=== PATIENT | female | born 1985 | race Caucasian/White ===

== ENCOUNTER 2020-08-08 09:34 | Emergency (ER) | payer SELFPAY ==
[2020-08-08 09:46] VITALS: PULSE 142; RESP 20; TEMP 36.8; O2SAT 91; BMI 46.7
--- NOTE | 2020-08-08 09:54 | XRR_ITS ---
PROCEDURE INFORMATION: Exam: XR Chest, 1 View Exam date and time: 08/08/2020 10:11 AM Age: 35 years old Clinical indication: Shortness of breath; Additional info: SOB TECHNIQUE: Imaging protocol: XR of the chest Views: 1 view. COMPARISON: CR Chest 1 [place] [id number] 08/08/2017 11:31 AM FINDINGS: Lungs: Low lung volumes. No consolidation. Pleural space: Unremarkable. No evidence of pleural effusion or pneumothorax. Heart/Mediastinum: Unremarkable. No cardiomegaly. Bones/joints: Unremarkable. XR/XR chest 1V portable [id number] IMPRESSION: No acute findings.
[2020-08-08 10:24] VITALS: RESP 20
[2020-08-08] MEDS: morphine 4 mg/mL SDV 1 mL IVP (10:24)
[2020-08-08] MEDS: ondansetron 2 mg/ML SDV 2 mL 4 MG IVP ×2 (10:25→13:19)
[2020-08-08 10:26] LABS: Basophils % 0.2 %; Hematocrit 43.4 % (37.0-47.0); Hemoglobin 14.4 g/dL (11.5-15.3); Lymphocytes # 1.3 10^3/uL (0.8-4.8); Lymphocytes % 7.7 %; Mean Corpuscular HGB Conc 33.2 g/dL (30.0-36.0); Mean Corpuscular Hemoglobin 29.2 pg (28.0-34.0); Monocytes % 6.1 %; Neutrophils # 13.79 10^3/uL (1.8-7.7); Neutrophils % 85.5 %; Nucleated Red Blood Cells % 0 %; Platelet Count 338 10^3/cmm (130-400); Red Blood Count 4.93 10^6/uL (4.1-5.3); Red Cell Distribution Width 12.5 % (12.1-15.1); White Blood Count 16.1 10^3/uL (4.0-10.0)
[2020-08-08 10:28] LABS: HCG, Serum Qual Negative (Negative)
[2020-08-08] MEDS: sodium chloride 0.9% 1,000 ML 999 ML IV ×2 (10:28→13:13)
[2020-08-08 10:32] LABS: Alanine Aminotransferase 23 U/L (0-33); Albumin Level 4.4 g/dL (3.5-5.2); Alkaline Phosphatase 115 IU/L (35-105); Carbon Dioxide 19 mmol/L (22-29); Chloride 100 mmol/L (98-107); Globulin 3.6 g/dL (1.3-4.6); Glomerular Filtration Rate 50.8 mL/min (90-130); Glucose 141 mg/dL (65-115); Sodium 134 mmol/L (136-145); Total Bilirubin 0.5 mg/dL (0.15-1.2)
[2020-08-08 10:35] LABS: D Dimer 4.88 ug/mIFEU (0-0.59)
--- NOTE | 2020-08-08 10:36 | CTR_ITS ---
PROCEDURE INFORMATION: Exam: CT Angiography Chest With Contrast Exam date and time: 08/08/2020 10:37 AM Age: 35 years old Clinical indication: Shortness of breath; Additional info: SOB elevated dimer TECHNIQUE: Imaging protocol: Computed tomographic angiography of the chest with intravenous contrast. 3D rendering (Not supervised by radiologist): MIP and/or 3D reconstructed images were created by the technologist. Radiation optimization: All CT scans at this facility use at least one of these dose optimization techniques: automated exposure control; mA and/or kV adjustment per patient size (includes targeted exams where dose is matched to clinical indication); or iterative reconstruction. Contrast material: OMNI 350; Contrast volume: 95 ml; Contrast route: INTRAVENOUS (IV); COMPARISON: CR (CHEST, ) 08/08/2020 9:59 AM RADIATION DOSE METRICS: Total DLP (mGy-cm): 497.76 FINDINGS: Pulmonary arteries: Normal. No pulmonary emboli. Aorta: Unremarkable. No aortic aneurysm. No aortic dissection. Lungs: Unremarkable. No consolidation. No masses. Pleural space: Unremarkable. No pneumothorax. No pleural effusion. Heart: Unremarkable. No cardiomegaly. No pericardial effusion. Lymph nodes: Unremarkable. No enlarged lymph nodes. Bones/joints: Unremarkable. No acute fracture. Soft tissues: Unremarkable. CT/CT angio chest PE protcl [id number] IMPRESSION: No acute findings. Radiation Dose CTDIVOL = (mGy): DLP = 497.76 (mGy-cm)
[2020-08-08 10:43] LABS: Anion Gap 18.3 (5-19); Blood Urea Nitrogen 8 mg/dL (6-20); Osmolality Calculated 279 mOsm/kg (285-295); Potassium 3.3 mmol/L (3.5-5.1)
[2020-08-08 10:44] LABS: Aspartate Amino Transferase 23 U/L (0-32); Calcium 9.9 mg/dL (8.5-10.5)
[2020-08-08] MEDS: iohexol 350 mg/mL 100 mL Btl IV (11:24)
[2020-08-08 11:32] VITALS: BP 125/91; PULSE 112; RESP 21; O2SAT 99
[2020-08-08 11:51] LABS: Add Urine Microscopic? YES; Bilirubin Urine 1+ (Negative); Blood Urine Neg (Negative); Glucose Urine UA Norm (Normal); Ketones Urine Negative (Negative); Leukocyte Esterase Urine Negative (Negative); Nitrate Urine Negative (Negative); Protein Urine Trace (Negative); Urine Appearance Hazy (CLEAR); Urine Color Yellow (Yellow); Urobilinogen Urine Norm (Negative); pH Urine 5 (5-7)
[2020-08-08 12:11] LABS: Add Urine Culture? Yes; Bacteria Urine 2+ /hpf; RBC Urine 0-4 /hpf (0-2); Squamous Epithelial Cell Urine 15-25 /hpf (0-5)
--- NOTE | 2020-08-08 12:56 | ED_ITS ---
HPI - Nausea/Vomiting/Diarrhea General: Chief complaint: Nausea/Vomiting/Diarrhea Stated complaint: FEVER/N/V Time Seen by Provider: 08/08/20 09:42 Source: patient Mode of arrival: ambulatory Limitations: no limitations History of Present Illness: HPI Narrative: 35-year-old female patient presents to the emergency department complaining of shortness of breath nausea vomiting. Patient denies any abdominal pain. Patient denies any urinary symptoms. Patient states she has been running a fever at home. Patient has had positive exposure to COVID. Patient denies any neck pain. Patient complains of generalized malaise patient states the symptoms started about 3 days ago. MD elicited complaint: nausea and vomiting Associated nausea: Yes Associated symtoms: Reports nausea; Denies anxiety, change in vision, chest pain, dizziness, dysuria, headache(s), palpitations or syncope Review of Systems General: Reports: 10 or more systems reviewed and unremarkable except in HPI and below Const: Reports: fever(s), chills and body aches Eyes: Denies: change in vision or blurry vision ENMT: Denies: throat pain, dental pain or ear or mastoid pain Card: Denies: chest pain, palpitations, irregular heart rhythm, edema, lightheadedness or syncope Resp: Reports: dyspnea and non-productive cough; Denies: wheezing, stridor or pain on inspiration GI: Reports: nausea and vomiting; Denies: abdominal pain : Denies: flank pain, difficulty voiding, dysuria or urinary frequency Musc: Denies: neck pain or back pain Skin/Breast: Denies: rash Neuro: Denies: headache(s), numbness in extremities, weakness in extremities, dizziness or vertigo Psych: Denies: anxiety, suicidal ideation or homicidal ideation [facility] ED PFSH: Social History Smoking and tobacco status: never smoked Physical Exam Const: COMMON NORMALS: no acute distress, average body habitus, patient oriented x3, no limitations, healthy appearing, alert and well nourished HENMT: COMMON NORMALS: normocephalic, atraumatic, hearing grossly normal bilaterally, external ears normal, EAC's normal, TM's normal bilaterally, Normal external nose present, Normal nasal mucous membranes and turbinates present, moist oral mucous membranes, oropharynx normal, dentition normal and gingiva normal HEAD & SCALP: normocephalic and atraumatic NOSE: Normal external nose present and Normal nasal mucous membranes and turbinates present EXTERNAL EAR: Yes external ears normal EXTERNAL AUDITORY CANAL: EAC's normal TYMPANIC MEMBRANE: TM's normal bilaterally Eye: COMMON NORMALS: Equal, round and reactive pupils present, EOMs intact bilaterally, conjunctivae normal, no scleral icterus, no papilledema, normal visual wilkerson by confrontation and fundi normal bilaterally CONJUNCTIVA: Yes conjunctivae normal PUPIL: Yes Equal, round and reactive pupils present DIRECT OPHTHALMOSCOPY: Yes no papilledema and Yes fundi normal bilaterally Neck/C-Spine: COMMON NORMALS: full ROM, no lymphadenopathy, supple, no meningeal signs, no JVD, Thyroid normal and No carotid bruits THYROID: Thyroid normal Chest: COMMONS NORMALS: normal inspection of the chest, normal palpation of entire chest wall, normal inspection of the breasts and normal palpation of the breasts Resp: COMMON NORMALS: normal respiratory effort, No retractions, No use of accessory muscles, clear to auscultation bilaterally and percussion normal AUSCULTATION: clear to auscultation bilaterally PERCUSSION: percussion normal Cardio: COMMON NORMALS: no JVD RATE: tachycardic GI: COMMON NORMALS: Normal to inspection, nondistended, normoactive bowel sounds present, Soft to palpation, non-tender, No hepatosplenomegaly present, no masses and no bruits PALPATION: Yes Soft to palpation and Yes No hepatosple nomegaly present Extremity: COMMON NORMALS: normal to inspection, full ROM, capillary refill normal, no joint enlargement, no clubbing, cyanosis or edema, no calf tenderness and no pedal edema Neuro: COMMON NORMALS: patient oriented x3 SENSORIUM/ORIENTATION: Yes alert MENINGEAL SIGNS: Yes no meningeal signs Psych: COMMON NORMALS: mental status grossly normal, Normal thought process present, cooperative, normal affect, speech normal, activity/motor behavior normal, denies hallucinations, denies homicidal ideation and denies suicidal ideation SPEECH: Yes normal speech THOUGHT PROCESS: Normal thought process present Skin: COMMON NORMALS: no rashes or lesions noted, no wounds, turgor normal, no jaundice, no petechiae and no mottling GENERAL SKIN EXAM: no rashes or lesion s noted and turgor normal Course Vital Signs: Vital signs: Vital Signs Temperature 98.2 F 08/08/20 09:46 Pulse Rate 112 H 08/08/20 11:32 Respiratory Rate 21 H 08/08/20 11:32 Blood Pressure 125/91 08/08/20 11:32 Pulse Oximetry 99 08/08/20 11:32 MDM - Nausea/Vomiting/Diarrhea MDM Narrative: Medical decision making narrative: Patient is well-appearing nontoxic and in no acute distress. However patient did come in tachycardic. I did order a CT PE of her chest to rule out for pulmonary emboli. Patient CT chest was negative for pulmonary emboli or any other acute findings. Patient has been given 2 L of fluid her heart rate has come down to about 105 110 patient's nausea has been treated with Zofran. Patient states she has had some clinical improvement with this. 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 Patient states she thinks Zofran and her antibiotics will make her feel better. I have advised patient she must return to the emergency department with any worsening of her symptoms patient is denied abdominal pain or pelvic pain. Patient denies any back pain or flank pain or CVA tenderness any sign suggestive of pyelonephritis. Patient's COVID test is pending I have advised patient she needs to self quarantine until she knows the results of these test. Return precautions have been advised home care instructions have been reviewed at this time a feel patient is appropriate for outpatient treatment with very close follow-up. Differential Diagnosis: N/V/D differential diagnosis: Likely traveler's diarrhea, gastroenteritis and dehydration Lab Data: Labs: Lab Results 08/08/20 08/08/20 08/08/20 Range/Units 10:02 10:02 10:02 WBC 16.1 H (4.0-10.0) 10^3/ uL RBC 4.93 (4.1-5.3) 10^6/u L Hgb 14.4 (11.5-15.3) g/dL Hct 43.4 (37.0-47.0) % MCV 88.0 (81-99) fL MCH 29.2 (28.0-34.0) pg MCHC 33.2 (30.0-36.0) g/dL RDW 12.5 (12.1-15.1) % Plt Count 338 (130-400) 10^3/c mm MPV 10.0 (7.4-10.4) fL Neut % (Auto) 85.5 % Lymph % (Auto) 7.7 % Stearns % (Auto) 6.1 % Eos % (Auto) 0.0 % Baso % (Auto) 0.2 % Neut # (Auto) 13.79 H (1.8-7.7) 10^3/u L Lymph # (Auto) 1.3 (0.8-4.8) 10^3/u L Stearns # (Auto) 1.0 H (0.2-0.9) 10^3/u L Eos # (Auto) 0.0 (0.0-0.8) 10^3/u L Baso # (Auto) 0.0 (0.0-0.1) 10^3/u L Nucleated RBC % (a uto) 0 % Nucleated RBCs # 0.0 /100WBC D-Dimer (0-0.59) ug/mIFE U Sodium 134 L (136-145) mmol/L Potassium 3.3 L (3.5-5.1) mmol/L Chloride 100 (98-107) mmol/L Carbon Dioxide 19 L (22-29) mmol/L Anion Gap 18.3 (5-19) BUN 8 (6-20) mg/dL Creatinine 1.2 H (0.5-0.9) mg/dL GFR Calculation 50.8 L (90-130) mL/min Glucose 141 H (65-115) mg/dL Calculated Osmolal ity 279 L (285-295) mOsm/k g Calcium 9.9 (8.5-10.5) mg/dL Total Bilirubin 0.5 (0.15-1.2) mg/dL AST 23 (0-32) U/L ALT 23 (0-33) U/L Alkaline Phosphata se 115 H (35-105) IU/L Total Protein 8.0 (6.6-8.7) g/dL Albumin 4.4 (3.5-5.2) g/dL Globulin 3.6 (1.3-4.6) g/dL HCG, Qual Negative (Negative) Urine Color (Yellow) Urine Appearance (CLEAR) Urine pH (5-7) Ur Specific Gravit y (1.005-1.030) Urine Protein (Negative) Urine Glucose (UA) (Normal) Urine Ketones (Negative) Urine Blood (Negative) Urine Nitrate (Negative) Urine Bilirubin (Negative) Urine Urobilinogen (Negative) mg/dL Ur Leukocyte Daily ase (Negative) Urine RBC (0-2) /hpf Urine WBC (0-5) /hpf Ur Squamous Epith Cells (0-5) /hpf Amorphous Sediment Urine Bacteria (NONE) /hpf SARS-CoV-2 Ag (Rap id) (Negative) 08/08/20 08/08/20 08/08/20 Range/Units 10:02 10:34 14:18 WBC (4.0-10.0) 10^3/ uL RBC (4.1-5.3) 10^6/u L Hgb (11.5-15.3) g/dL Hct (37.0-47.0) % MCV (81-99) fL MCH (28.0-34.0) pg MCHC (30.0-36.0) g/dL RDW (12.1-15.1) % Plt Count (130-400) 10^3/c mm MPV (7.4-10.4) fL Neut % (Auto) % Lymph % (Auto) % Stearns % (Auto) % Eos % (Auto) % Baso % (Auto) % Neut # (Auto) (1.8-7.7) 10^3/u L Lymph # (Auto) (0.8-4.8) 10^3/u L Stearns # (Auto) (0.2-0.9) 10^3/u L Eos # (Auto) (0.0-0.8) 10^3/u L Baso # (Auto) (0.0-0.1) 10^3/u L Nucleated RBC % (a uto) % Nucleated RBCs # /100WBC D-Dimer 4.88 H (0-0.59) ug/mIFE U Sodium (136-145) mmol/L Potassium (3.5-5.1) mmol/L Chloride (98-107) mmol/L Carbon Dioxide (22-29) mmol/L Anion Gap (5-19) BUN (6-20) mg/dL Creatinine (0.5-0.9) mg/dL GFR Calculation (90-130) mL/min Glucose (65-115) mg/dL Calculated Osmolal ity (285-295) mOsm/k g Calcium (8.5-10.5) mg/dL Total Bilirubin (0.15-1.2) mg/dL AST (0-32) U/L ALT (0-33) U/L Alkaline Phosphata se (35-105) IU/L Total Protein (6.6-8.7) g/dL Albumin (3.5-5.2) g/dL Globulin (1.3-4.6) g/dL HCG, Qual (Negative) Urine Color Yellow (Yellow) Urine Appearance Hazy A (CLEAR) Urine pH 5 (5-7) Ur Specific Gravit y 1.020 (1.005-1.030) Urine Protein Trace (Negative) Urine Glucose (UA) Norm (Normal) Urine Ketones Negative (Negative) Urine Blood Neg (Negative) Urine Nitrate Negative (Negative) Urine Bilirubin 1+ H (Negative) Urine Urobilinogen Norm (Negative) mg/dL Ur Leukocyte Daily ase Negative (Negative) Urine RBC 0-4 H (0-2) /hpf Urine WBC 10-15 H (0-5) /hpf Ur Squamous Epith Cells 15-25 H (0-5) /hpf Amorphous Sediment Not Reportable Urine Bacteria 2+ H (NONE) /hpf SARS-CoV-2 Ag (Rap id) Negative (Negative) Discharge Plan Discharge Patient Disposition: Home Clinical Impression: Gastroenteritis UTI (urinary tract infection) Qualifiers: Urinary tract infection type: acute cystitis Hematuria presence: without hematuria Qualified Code(s): N30.00 - Acute cystitis without hematuria Condition: Stable Prescriptions: New dicyclomine 20 mg tablet 20 mg PO BID Qty: 10 RF: 0 Cipro 250 mg tablet 250 mg PO BID 3 Days Qty: 6 RF: 0 Zofran 4 mg tablet 4 mg PO Q8H PRN (Reason: nausea and vomiting) 4 Days Qty: 15 RF: 0 No Action ibuprofen 800 mg tablet 800 mg PO Q8H PRN (Reason: FEVER/PAIN) RF: 0 levothyroxine 200 mcg tablet 400 mcg PO QDAY RF: 0 Tylenol 325 mg Tablet 325 mg PO QID PRN (Reason: PAIN/FEVER) RF: 0 Imodium A-D 2 mg Tablet 2 mg PO Q4H PRN (Reason: Diarrhea) RF: 0 Tums 200 mg calcium (500 mg) Tablet,Chewable 200 - 400 mg PO Q4H PRN (Reason: UPSET STOMACH) RF: 0 Cough and Cold [id number] mg Capsule 2 cap PO Q4H PRN (Reason: Cold Symptoms) RF: 0 Discharge Orders: Discharge Order (Routine); Ordered 08/08/20 Ordered By: Opal Brooks Referrals: Allison Baxter APN [Primary Care Provider] - Discharge Diet: Advance as tolerated Discharge Activity: Increase activity as tolerated Patient Instructions: Urinary Tract Infection in Women (ED), Gastroenteritis (ED) Activity Restrictions/Additional Instructions: Please take antibiotics as prescribed Please take all meds as prescribed Please push fluids Please return to ER with any worsening of symptoms Please return to ER if unable to keep fluids down, fever, chest pain or shortness of breath Please self quarantine until covid tests are back Stand Alone Forms: Work/School Release Coding Level of Care Code ED Rail Switchman for Yovani Fwd Exam Comprehensive
[2020-08-08] MEDS: dicyclomine 20 mg Tablet PO (14:26)
--- NOTE | 2020-08-08 14:58 | ECG_ITS ---
[facility] Test Date: 2020-08-08 Pat Name: Piper Hercules Department: Room: Gender: Female Field Laborer: : 1985 Requested By: Opal Brooks Order Number: [id number] Dennis MD: Yung Matta M.D. Measurements Intervals [place] Rate: 142 P: 38 DE: 141 QRS: 87 QRSD: 86 T: 28 QT: 303 QTc: 467 Interpretive Statements SINUS TACHYCARDIA NONSPECIFIC T-WAVE ABNORMALITY No previous ECG available for comparison Electronically Signed On 08-09-2020 17:42:22 CDT by Yung Matta M.D. [email or web address]
[2020-08-08 15:15] LABS: SARS Covid-2 Antigen Negative (Negative)
[2020-08-08] MEDS: ciprofloxacin 500 mg Tablet PO (15:29)
[2020-08-08 15:46] VITALS: BP 122/86; PULSE 113; RESP 21; O2SAT 99
[2020-08-10 21:08] LABS: Quest SARS-CoV-2 RNA NOT DETECTED (NOT DETECTED)
--- NOTE | 2020-08-11 09:26 | PC.NURSE ---
Pt called and notified of negative COVID result.
== END 2020-08-08 15:47 | disposition home or self-care (01) ==
PROVIDERS: Emergency Medicine; Emergency Provider Registered Nurse; PCP Nurse Practitioner Family
DX: N30.00 Acute cystitis without hematuria (principal); K52.9 Noninfective gastroenteritis and colitis, unspecified
CPT/HCPCS: 12345; 71045; 71275; 80053; 81001; 84703; 85025; 85378; 87077; 87086; 87186; 87426; 87635; 93005; 96361; 96374; 96375; 96376; 99283; 99284; J2270; J2405; J7030; Q9967

== ENCOUNTER → 2021-06-29 15:07 | Outpatient (BNVA) | payer MEDICAID, SELFPAY | PROVIDERS: PCP Nurse Practitioner Family; Visit Provider Nurse Practitioner Women's Health | DX: N92.6 Irregular menstruation, unspecified (principal); E03.9 Hypothyroidism, unspecified; Z87.59 Personal history of other complications of pregnancy, childbirth and the puerperium | CPT/HCPCS: 81025; 84439; 84443; 84702; 86850; 86870; 86886; 86900 ==

== ENCOUNTER → 2021-06-30 10:41 | Outpatient (BNVA) | payer MEDICAID, SELFPAY | PROVIDERS: PCP Nurse Practitioner Family; Visit Provider Nurse Practitioner Women's Health | DX: O36.0990 Maternal care for other rhesus isoimmunization, unspecified trimester, not applicable or unspecified (principal); E03.9 Hypothyroidism, unspecified; Z87.59 Personal history of other complications of pregnancy, childbirth and the puerperium | CPT/HCPCS: 80500 ==

== ENCOUNTER → 2021-08-04 09:27 | Outpatient (BNVA) | payer MEDICAID, SELFPAY | PROVIDERS: PCP Nurse Practitioner Family; Visit Provider Nurse Practitioner Women's Health | DX: O09.899 Supervision of other high risk pregnancies, unspecified trimester (principal); Z87.59 Personal history of other complications of pregnancy, childbirth and the puerperium; E03.9 Hypothyroidism, unspecified | CPT/HCPCS: 81000; 87086 ==

== ENCOUNTER → 2021-08-09 11:08 | Outpatient (BNVA) | payer MEDICAID, SELFPAY | PROVIDERS: PCP Nurse Practitioner Family; Visit Provider Obstetrics & Gynecology | DX: O09.899 Supervision of other high risk pregnancies, unspecified trimester (principal); O21.9 Vomiting of pregnancy, unspecified; Z87.59 Personal history of other complications of pregnancy, childbirth and the puerperium | CPT/HCPCS: 80053; 80307; 81000; 82570; 82950; 83036; 84156; 84439; 84443; 84481; 84550; 85027; 86592; 86762; 86803; 86850; 86870; 86886; 86900; 87340; 87806 ==

== ENCOUNTER → 2021-08-22 15:25 | Outpatient (BNVA) | payer MEDICAID, SELFPAY | PROVIDERS: PCP Nurse Practitioner Family; Visit Provider Obstetrics & Gynecology | DX: O09.899 Supervision of other high risk pregnancies, unspecified trimester (principal); Z12.4 Encounter for screening for malignant neoplasm of cervix; O21.9 Vomiting of pregnancy, unspecified | CPT/HCPCS: 81000; 87491; 87591; 87624 ==

== ENCOUNTER → 2021-09-16 10:09 | Outpatient (BNVA) | payer MEDICAID, SELFPAY | PROVIDERS: PCP Nurse Practitioner Family; Visit Provider Nurse Practitioner Women's Health | DX: O36.0190 Maternal care for anti-D [Rh] antibodies, unspecified trimester, not applicable or unspecified (principal); E03.9 Hypothyroidism, unspecified; O21.9 Vomiting of pregnancy, unspecified; Z87.59 Personal history of other complications of pregnancy, childbirth and the puerperium | CPT/HCPCS: 84315; 86886 ==

== ENCOUNTER → 2021-12-14 09:08 | Outpatient (BNVA) | payer MEDICAID, SELFPAY | PROVIDERS: PCP Nurse Practitioner Family | DX: O09.899 Supervision of other high risk pregnancies, unspecified trimester (principal) | CPT/HCPCS: 82951; 82952 ==

== ENCOUNTER 2022-01-03 16:57 | Outpatient (CLI) | payer MEDICAID, SELFPAY ==
[2022-01-03] VITALS (14 sets, daily range): BP systolic 117–148; BP diastolic 60–84; PULSE 82–157; RESP 16–18; TEMP 36.8; BMI 47.5
[2022-01-03] MEDS: lactated ringers 1,000 ML 999 ML IV ×2 (18:15→19:45)
[2022-01-03] MEDS: ondansetron 2 mg/ML SDV 2 mL 4 MG IVP (18:15)
[2022-01-03 18:16] LABS: Add Urine Microscopic? NO; Charge for UA Resulting for Rev
[2022-01-03 18:19] LABS: Basophils % 0.2 %; Eosinophils % 0.3 %; Hematocrit 34.2 % (37.0-47.0); Hemoglobin 11.4 g/dL (11.5-15.3); Lymphocytes # 2.2 10^3/uL (0.8-4.8); Lymphocytes % 19.7 %; Mean Corpuscular HGB Conc 33.3 g/dL (30.0-36.0); Mean Corpuscular Hemoglobin 30.8 pg (28.0-34.0); Mean Corpuscular Volume 92.4 fl (81-99); Mean Platelet Volume 10.3 fL (7.4-10.4); Monocytes # 0.6 10^3/uL (0.2-0.9); Monocytes % 5.5 %; Neutrophils # 8.34 10^3/uL (1.8-7.7); Neutrophils % 73.8 %; Nucleated Red Blood Cells % 0 %; Platelet Count 313 10^3/cmm (130-400); Red Cell Distribution Width 13.2 % (12.1-15.1); White Blood Count 11.3 10^3/uL (4.0-10.0)
[2022-01-03 18:22] LABS: Bilirubin Urine 1+ (Negative); Blood Urine Neg (Negative); Glucose Urine UA Norm (Normal); Ketones Urine Negative (Negative); Leukocyte Esterase Urine Negative (Negative); Nitrate Urine Negative (Negative); Protein Urine Neg (Negative); Specific Gravity, Urine 1.025 (1.005-1.030); Urine Appearance Clear (CLEAR); Urine Color Yellow (Yellow); Urobilinogen Urine Neg (Negative); pH Urine 5 (5-7)
[2022-01-03 18:43] LABS: SARS Covid-2 Antigen Negative (Negative)
[2022-01-03 18:51] LABS: Urine Creatinine 233 mg/dL (28-217); Urine Protein Random 24 mg/dL
[2022-01-03 18:52] LABS: Alanine Aminotransferase 7 U/L (0-33); Albumin Level 3.6 g/dL (3.5-5.2); Alkaline Phosphatase 151 IU/L (35-105); Anion Gap 16.4 (5-19); Aspartate Amino Transferase 12 U/L (0-32); Blood Urea Nitrogen 4 mg/dL (6-20); Calcium 10.2 mg/dL (8.5-10.5); Carbon Dioxide 20 mmol/L (22-29); Chloride 105 mmol/L (98-107); Globulin 3.3 g/dL (1.3-4.6); Glomerular Filtration Rate 112.5 mL/min (90-130); Glucose 123 mg/dL (65-115); Osmolality Calculated 284 mOsm/kg (285-295); Potassium 3.4 mmol/L (3.5-5.1); Sodium 138 mmol/L (136-145); Total Bilirubin 0.2 mg/dL (0.15-1.2); Total Protein 6.9 g/dL (6.6-8.7); Uric Acid 5.1 mg/dL (2.4-5.7)
== END 2022-01-03 20:55 | disposition home or self-care (01) ==
LOC: OPOB 16:58 → OBGYN 16:59
PROVIDERS: Obstetrics & Gynecology; PCP Nurse Practitioner Family; Visit Provider Obstetrics & Gynecology
DX: O21.9 Vomiting of pregnancy, unspecified (principal); Z3A.00 Weeks of gestation of pregnancy not specified; M54.9 Dorsalgia, unspecified
CPT/HCPCS: 36415; 59025; 80053; 81003; 82570; 84156; 84550; 85025; 87426; 99211; J2405

== ENCOUNTER → 2022-02-21 16:50 | Outpatient (BNVA) | payer MEDICAID, SELFPAY | PROVIDERS: PCP Nurse Practitioner Family; Visit Provider Obstetrics & Gynecology | DX: R87.610 Atypical squamous cells of undetermined significance on cytologic smear of cervix (ASC-US) (principal); R87.810 Cervical high risk human papillomavirus (HPV) DNA test positive | CPT/HCPCS: 81025; 87624; 88305 ==

== ENCOUNTER → 2022-02-28 08:39 | Outpatient (BNVA) | payer MEDICAID, SELFPAY | PROVIDERS: PCP Nurse Practitioner Family; Visit Provider Obstetrics & Gynecology | DX: Z30.9 Encounter for contraceptive management, unspecified (principal); E03.9 Hypothyroidism, unspecified; R79.89 Other specified abnormal findings of blood chemistry; O24.419 Gestational diabetes mellitus in pregnancy, unspecified control | CPT/HCPCS: 80053; 81025; 82947; 84439; 84443; 84481; 85025 ==

== ENCOUNTER 2023-08-29 21:56 | Emergency (ER) | payer MEDICAID, SELFPAY ==
[2023-08-29 22:09] VITALS: BP 161/111; PULSE 101; RESP 16; TEMP 36.4; O2SAT 96; BMI 51.5
--- NOTE | 2023-08-29 22:52 | ED_ITS ---
HPI - General Adult General: Chief complaint: General Medical Stated complaint: abdomen pain, back pain Time Seen by Provider: 08/29/23 22:44 History of Present Illness: Patient presents to the ER with complaints of worsening deep abdominal/low back pain. Feels like her insides are being tied in a knot. This has been going on off and on for several months. 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 Where she had a traumatic epidural. But she had several months after that the she did not have this pain. Patient also states she gained approximately 60 pounds in the last 3 months without trying. Patient states she has not had any changes in her diet, activity level, etc. to warrant weight gain. Patient is on levothyroxine 300 mcg daily that she says has not changed. 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 She reports she was followed by her bottle gauger as a child but has not had any follow-up other than with MFM in her 20s during her resolved at 8 y/o. Hypothyroid (~2015) Diagnosed in 2010. Was last seen by endocrinology in about 2016 and has been under management by her primary care provider. She ran out of medication at the beginning of the and refill was provided by Melyssa Marino. No pertinent past medical history Denies diabetes, asthma, hypertension, seizures, DVT/PE PCP: DANNIE Banks Surgical History History of tonsillectomy and adenoidectomy (~1990) Hx laparoscopic cholecystectomy (~2018) Hx of foot surgery (~1996) right--- trauma S/P cystoscopy with ureteral stent placement (~01/04/18) Cystoscopy, left retrograde ureteropyelogram, left ureteroscopy with stone extraction, left ureteral stent placement performed by Dr. Allen due to obstructing left distal ureteral stone with refractory renal colic, intrinsic narrowing of the left ureteral distal to the location of the stone, likely the reason the stone has not progressed Status post delivery 01/10/2022---primary delivery performed for distress at 32 weeks after pubs procedure in [facility] Family History Father Diabetes Heart disease Hypercholesteremia Hypertension Denies family history of Colon cancer Ovarian cancer Breast cancer Uterine cancer Thyroid disease Stroke Social History Substance/Drug Use: never Physical Exam Const: COMMON NORMALS: no acute distress, average body habitus, patient oriented x3, no limitations, healthy appearing, alert and well nourished HENMT: COMMON NORMALS: normocephalic, atraumatic, hearing grossly normal bilaterally, external ears normal, Normal external nose present, moist oral mucous membranes and oropharynx normal HEAD & SCALP: normocephalic and atraumatic NOSE: Normal external nose present EXTERNAL EAR: Yes external ears normal Eye: COMMON NORMALS: Equal, round and reactive pupils present, EOMs intact bilaterally, conjunctivae normal and no scleral icterus CONJUNCTIVA: Yes conjunctivae normal PUPIL: Yes Equal, round and reactive pupils present Neck/C-Spine: COMMON NORMALS: full ROM, no lymphadenopathy, supple, no meningeal signs and no JVD Chest: COMMONS NORMALS: normal inspection of the chest and normal palpation of entire chest wall Resp: COMMON NORMALS: normal respiratory effort, No retractions, No use of accessory muscles and clear to auscultation bilaterally AUSCULTATION: clear to auscultation bilaterally Cardio: COMMON NORMALS: no JVD, regular rate, regular rhythm, S1 normal heart sound present, S2 normal heart sound present, No gallops present (Cardio), No clicks present (Cardio), No murmurs present (Cardio) and No rub (Cardio) RATE: regular rate RHYTHM: regular rhythm HEART SOUNDS: S1 normal heart sound present and S2 normal heart sound present GI: COMMON NORMALS: Normal to inspection, nondistended, normoactive bowel so unds present, Soft to palpation, non-tender, No hepatosplenomegaly present and no masses PALPATION: Yes Soft to palpation and Yes No hepatosplenomegaly present Back/Pelvis: OTHER: Tender to palpation over lumbosacral spine area and paraspinal muscular spasms in this vicinity. Neuro: COMMON NORMALS: patient oriented x3 SENSORIUM/ORIENTATION: Yes alert MENINGEAL SIGNS: Yes no meningeal signs Course Vital Signs: Vital signs: Vital Signs Temperature 97.6 F 08/29/23 22:09 Pulse Rate 101 H 08/29/23 22:09 Respiratory Rate 16 08/29/23 22:09 Blood Pressure 161/111 08/29/23 22:09 Pulse Oximetry 96 08/29/23 22:09 [facility] - General Adult Medical Decision Making Patient physical exam performed as well as lab work and abdomen pelvis CT. All of which was essentially benign and findings other than high TSH which does not surprise the patient because she said is always abnormal and the only thing that might be indicative of low back abdominal pain but unlikely would be the IUD in the uterus. Patient was instructed of all these findings and was told to follow-up with her DIRECTOR OF FUNDRAISING and discussed this possibility with him. Differential Diagnosis Abdominal pain, low back pain, weight gain Medical Records I reviewed the patient's medical records. Lab Data I reviewed the patient's lab results. 08/29/23 22:59 08/29/23 22:59 Radiology Impressions Abdomen/Pelvis CT 08/29/23 23:51 IMPRESSION: 1. No acute findings. 2. Hepatic steatosis. 3. Status post cholecystectomy. No biliary dilatation. 4. IUD seen within the uterus. 5. A 6 mm pulmonary nodule in the posteromedial left lower lobe, new in comparison to 08/08/2020. As per Fleischner Society guidelines for follow-up and management of pulmonary nodules between 6 and 8 mm: For patients at low risk (minimal or absent history of smoking and of other known risk factors), recommend follow-up chest CT at 6 - 12 months and consider followup at 18 - 24 months. For patients at high risk (history of smoking or of other known risk factors), recommend initial follow-up chest CT at 6-12 months, then at 18-24 months. REFERENCES: Ashwin Cordova, et al. Guidelines for Management of Incidental Pulmonary Nodules Detected on CT Images: From the Fleischner Society 2017. Radiology. 2017;284(1):228-243. Laboratory Results WBC 10.48 10^3/uL (3.29-11.43) 08/29/23 22:59 RBC 4.41 10^6/uL (3.85-5.65) 08/29/23 22:59 Hgb 13.10 g/dL (11.27-16.99) 08/29/23 22:59 Hct 41.7 % (36-47) 08/29/23 22:59 MCV 94.6 fl (85-98) 08/29/23 22:59 MCH 29.7 pg (27-33) 08/29/23 22: MCHC 31.4 g/dL (30-55) 08/29/23 22:59 RDW 12.8 % (12.1-15.1) 08/29/23 22:59 Plt Count 301 10^3/cmm (157-399) 08/29/23 22:59 MPV 9.3 fL (7.4-10.4) 08/29/23 22:59 Neut % (Auto) 58.7 % 08/29/23:59 Lymph % (Auto) 33.1 % 08/29/23 22:59 [place] % (Auto) 6.2 % 08/29/23 22:59 Eos % (Auto) 1.1 % 08/29/23 22:59 Baso % (Auto) 0.4 % 08/29/23 22:59 Neut # (Auto) 6.15 10^3/uL (1.8-7.7) 08/29/23 22:59 Lymph # (Auto) 3.5 10^3/uL (0.8-4.8) 08/29/23 22:59 [place] # (Auto) 0.7 10^3/uL (0.2-0.9) 08/29/23 22:59 Eos # (Auto) 0.1 10^3/uL (0.0-0.8) 08/29/23 22:59 Baso # (Auto) 0.0 10^3/uL (0.0-0.1) 08/29/23:59 Nucleated RBC % (auto) 0 % 08/29/23: Nucleated RBCs # 0.0 /100WBC 08/29/23 22:59 Sodium 137 mmol/L (136-145) 08/29/23 22:59 Potassium 3.9 mmol/L (3.5-5.1) 08/29/23 22:59 Chloride 102 mmol/L (98-107) 10/25/23 22:59 Carbon Dioxide 22 mmol/L (22-29) 08/29/23 22:59 Anion Gap 16.9 (5-19) 08/29/23 22:59 BUN 14 mg/dL (6-20) 08/29/23 22:59 Creatinine 1.0 mg/dL (0.5-0.9) H 08/29/23 22:59 GFR Calculation 61.7 mL/min (90-130) L 08/29/23 22:59 Glucose 113 mg/dL (65-115) 08/29/23 22:59 Calculated Osmolality 285 mOsm/kg (285-295) 08/29/23 22:59 Calcium 9.8 mg/dL (8.5-10.5) 08/29/23 22:59 Magnesium 2.2 mg/dL (1.7-2.3) 08/29/23 22:59 Total Bilirubin 0.2 mg/dL (0.15-1.2) 08/29/23 22:59 AST 18 U/L (0-32) 08/29/23 22:59 ALT 21 U/L (0-33) 08/29/23 22:59 Alkaline Phosphatase 107 U/L (35-105) H 08/29/23 22:59 Total Protein 7.8 g/dL (6.6-8.7) 08/29/23 22:59 Albumin 4.1 g/dL (3.5-5.2) 08/29/23 22:59 Globulin 3.7 g/dL (1.3-4.6) 08/29/23 22:59 Lipase 29 U/L (13-60) 08/29/23 22:59 TSH 24.20 uIU/mL (0.27-4.20) H 08/29/23 22:59 HCG, Qual Negative (Negative) 08/29/23 23:37 Urine Color Yellow (Yellow) 08/29/23 23:37 Urine Appearance Clear (CLEAR) 08/29/23 23:37 Urine pH 5 (5-7) 08/29/23 23:37 Ur Specific [place] 1.025 (1.005-1.030) 08/29/23 23:37 Urine Protein Neg (Negative) 08/29/23 23:37 Urine Glucose (UA) Norm (Normal) 08/29/23 23:37 Urine Ketones 1+ (Negative) H 08/29/23 23:37 Urine Blood Neg (Negative) 08/29/23 23:37 Urine Nitrate Negative (Negative) 08/29/23 23:37 Urine Bilirubin Neg (Negative) 08/29/23 23:37 Urine Urobilinogen Neg mg/dL (Negative) 08/29/23 23:37 Ur Leukocyte Esterase Negative (Negative) 08/29/23 23:37 All radiology interpretation(s) finalized by discharge Discharge Plan Discharge Patient Disposition: Home Clinical Impression: Abdominal pain Qualifiers: Abdominal location: lower abdomen, unspecified Qualified Code(s): R10.30 - Lower abdominal pain, unspecified Low back pain Qualifiers: Chronicity: unspecified Back pain laterality: bilateral Sciatica presence: without sciatica Qualified Code(s): M54.50 - Low back pain, unspecified Condition: Stable Prescriptions: No Action Mirena 20 mcg/24 hours (7 yrs) 52 mg intrauterine device 1 insert intrauterine .every 6 years Qty: 1 0RF furosemide [Lasix] 20 mg tablet 20 mg PO DAILY 5 Days Qty: 5 0RF labetalol 100 mg tablet 100 mg PO DAILY sertraline [Zoloft] 50 mg tablet 50 mg PO DAILY Qty: 14 0RF azithromycin [Zithromax Z-Saulo] 250 mg tablet See Rx Instructions PO .COMPLEX Qty: 6 0RF Rx Instructions: take 500 mg today (day 1), then 250 mg for 4 days (days 2-5) PO levothyroxine 300 mcg tablet 300 mcg PO DAILY Qty: 30 0RF potassium chloride 20 mEq tablet extended release 20 meq PO BID 6 Days Qty: 12 0RF Discharge Orders: Discharge ED (Routine); Ordered 08/30/23 Ordered By: Ace Gimenez Referrals: Allison Baxter APN [Primary Care Provider] - 1 week Patient Instructions: Abdominal Pain (ED), Back Pain (ED) Activity Restrictions/Additional Instructions: Your work-up in the ER that included physical exam, lab work, and imaging did not show any reason for your pain other than the possibility that your IUD is causing your pain. This is unlikely but a possibility. Please follow-up with your DIRECTOR OF FUNDRAISING and discuss this with them. Please follow-up with your family practice physician for further evaluation and treatment. Coding Level of Care Code ED [employer] Team Member for Chg Fwd
[2023-08-29 23:04] LABS: Basophils % 0.4 %; Eosinophils # 0.1 10^3/uL (0.0-0.8); Eosinophils % 1.1 %; Hematocrit 41.7 % (36-47); Lymphocytes # 3.5 10^3/uL (0.8-4.8); Lymphocytes % 33.1 %; Mean Corpuscular HGB Conc 31.4 g/dL (30-55); Mean Corpuscular Hemoglobin 29.7 pg (27-33); Mean Corpuscular Volume 94.6 fl (85-98); Mean Platelet Volume 9.3 fL (7.4-10.4); Monocytes # 0.7 10^3/uL (0.2-0.9); Monocytes % 6.2 %; Neutrophils # 6.15 10^3/uL (1.8-7.7); Neutrophils % 58.7 %; Nucleated Red Blood Cells % 0 %; Platelet Count 301 10^3/cmm (157-399); Red Blood Count 4.41 10^6/uL (3.85-5.65); Red Cell Distribution Width 12.8 % (12.1-15.1); White Blood Count 10.48 10^3/uL (3.29-11.43)
[2023-08-29 23:05] VITALS: BP 158/99
[2023-08-29] MEDS: ketorolac 30 mg/mL INJ IVP (23:06)
[2023-08-29 23:35] LABS: Alanine Aminotransferase 21 U/L (0-33); Albumin Level 4.1 g/dL (3.5-5.2); Alkaline Phosphatase 107 U/L (35-105); Aspartate Amino Transferase 18 U/L (0-32); Blood Urea Nitrogen 14 mg/dL (6-20); Calcium 9.8 mg/dL (8.5-10.5); Carbon Dioxide 22 mmol/L (22-29); Chloride 102 mmol/L (98-107); Globulin 3.7 g/dL (1.3-4.6); Glomerular Filtration Rate 61.7 mL/min (90-130); Glucose 113 mg/dL (65-115); Lipase 29 U/L (13-60); Magnesium 2.2 mg/dL (1.7-2.3); Osmolality Calculated 285 mOsm/kg (285-295); Sodium 137 mmol/L (136-145); Total Bilirubin 0.2 mg/dL (0.15-1.2); Total Protein 7.8 g/dL (6.6-8.7)
[2023-08-29 23:38] VITALS: BP 136/87; PULSE 89; O2SAT 97
[2023-08-29 23:42] LABS: Anion Gap 16.9 (5-19); Potassium 3.9 mmol/L (3.5-5.1)
[2023-08-29 23:42] LABS: Add Urine Microscopic? NO; Charge for UA Resulting for Rev
[2023-08-29 23:45] LABS: Bilirubin Urine Neg (Negative); Blood Urine Neg (Negative); Glucose Urine UA Norm (Normal); Ketones Urine 1+ (Negative); Leukocyte Esterase Urine Negative (Negative); Nitrate Urine Negative (Negative); Protein Urine Neg (Negative); Specific Gravity, Urine 1.025 (1.005-1.030); Urine Appearance Clear (CLEAR); Urine Color Yellow (Yellow); Urobilinogen Urine Neg (Negative); pH Urine 5 (5-7)
[2023-08-29 23:46] LABS: HCG Qualitative Urine. Negative (Negative)
--- NOTE | 2023-08-29 23:51 | CTR_ITS ---
PROCEDURE INFORMATION: Exam: CT Abdomen And Pelvis With Contrast Exam date and time: 08/30/2023 12:40 AM Age: 38 years old Clinical indication: Abdominal pain; Generalized; Additional info: Low abd pain radiating into back TECHNIQUE: Imaging protocol: Computed tomography of the abdomen and pelvis with contrast. Radiation optimization: All CT scans at this facility use at least one of these dose optimization techniques: automated exposure control; mA and/or kV adjustment per patient size (includes targeted exams where dose is matched to clinical indication); or iterative reconstruction. Contrast material: OMNI 350; Contrast volume: 120 ml; Contrast route: INTRAVENOUS (IV); REPORTING DATA: Count of CT and Cardiac NM exams in prior 12 months: This patient has received 0 known CTs and 0 known cardiac nuclear medicine studies in the 12 months prior to the current study. COMPARISON: 1. CT abdomen and pelvis without contrast 01/04/2018 11:[address] angio chest 08/08/2020 11:15 AM RADIATION DOSE METRICS: Total DLP (mGy-cm): 1461.97 FINDINGS: Lungs: A 6 mm pulmonary nodule in the posteromedial left lower lobe, new in comparison to 08/08/2020. Liver: Hepatic steatosis. Gallbladder and bile ducts: Status post cholecystectomy. No biliary dilatation. Pancreas: Normal pancreas. No ductal dilation. Spleen: Normal spleen. No splenomegaly. Adrenal glands: Adrenal glands are normal. Kidneys and ureters: No hydronephrosis or obstructive calculus. Evaluation for small intrarenal calculi is extremely limited due to excreted contrast already present in the renal collecting systems. Stomach and bowel: No acute bowel abnormality. No obstruction. No mucosal thickening. Appendix: No evidence of appendicitis. Intraperitoneal space: No free fluid or free air. Vasculature: No abdominal aortic aneurysm. Lymph nodes: No adenopathy. Urinary bladder: Normal urinary bladder. Reproductive: IUD seen within the uterus. Uterus and adnexal structures otherwise unremarkable. Bones/joints: No acute osseous abnormality or evidence of osseous metastatic disease. Soft tissues: Small fat containing umbilical hernia. CT/CT abdomen pelvis w con* [id number] IMPRESSION: 1. No acute findings. 2. Hepatic steatosis. 3. Status post cholecystectomy. No biliary dilatation. 4. IUD seen within the uterus. 5. A 6 mm pulmonary nodule in the posteromedial left lower lobe, new in comparison to 08/08/2020. As per Fleischner Society guidelines for follow-up and management of pulmonary nodules between 6 and 8 mm: For patients at low risk (minimal or absent history of smoking and of other known risk factors), recommend follow-up chest CT at 6 - 12 months and consider followup at 18 - 24 months. For patients at high risk (history of smoking or of other known risk factors), recommend initial follow-up chest CT at 6-12 months, then at 18-24 months. REFERENCES: Ashwin Cordova, et al. Guidelines for Management of Incidental Pulmonary Nodules Detected on CT Images: From the Fleischner Society 2017. Radiology. 2017;284(1):228-243.
[2023-08-30 00:01] VITALS: BP 130/72
[2023-08-30] MEDS: iohexol 350 mg/mL 500 mL Btl (per mL) IV (00:49)
[2023-08-30 01:01] VITALS: BP 168/96; PULSE 92; O2SAT 97
[2023-08-30 01:47] VITALS: BP 169/112; PULSE 75; O2SAT 97
== END 2023-08-30 01:48 | disposition home or self-care (01) ==
PROVIDERS: Emergency Provider Emergency Medicine; PCP Nurse Practitioner Family
DX: R10.30 Lower abdominal pain, unspecified (principal); M54.50 Low back pain, unspecified
CPT/HCPCS: 36415; 74177; 80053; 81003; 81025; 83690; 83735; 84443; 85025; 96374; 99285; J1885; Q9967

== ENCOUNTER 2023-12-21 13:38 | Outpatient (CLI) | payer BC, MEDICAID, SELFPAY ==
--- NOTE | 2023-12-21 13:42 | US_ITS ---
WS: [id number] THYROID ULTRASOUND HISTORY: ENLARGED THYROID COMPARISON: None available. Right lobe: 2.7 cm x 3.0 cm x 6.9 cm (w x ap x l). Volume: 26.9 cm3. Thyroid is enlarged and very heterogeneous. There are tiny hypoechoic foci scattered throughout the g land. No discrete nodule. Also, no significant increased vascularity. Left lobe: 2.6 cm x 2.2 cm x 6.8 cm (w x ap x l). Volume: 18.7 cm3. Moderately enlarged thyroid is very heterogeneous. There are tiny hypoechoic foci scattered throughou t the gland. No discrete nodule. No echogenic foci. No increased vascularity. Isthmus: 1.1 cm. IMPRESSION: 1. Enlarged thyroid without a focal mass or nodule. 2. No increased vascularity. Favor multinodular goiter versus treated Luis Alberto's thyroiditis.
--- NOTE | 2023-12-21 13:42 | US_ITS ---
WS: [id number] US pelv w/transvag [id number] HISTORY: PELVIC PAIN COMPARISON: CT 08/30/2023 Uterus: 8.0 cm x 4.6 cm x 4.7 cm. Normal size anteverted uterus. No fibroid or mass. Endometrium: 0.5 cm. Normal endometrium. There are a few areas of shadowing from the endometrium. Not ed on the prior CT is an IUD present. Right ovary: 2.2 cm x 1.9 cm x 1.9 cm. Normal size and vascularity, no cystic or solid masses. Left ovary: 1.9 cm x 2.8 cm x 1.2 cm. Normal size and vascularity, no cystic or solid masses. Small f ollicle present. No free fluid in the cul-de-sac. IMPRESSION: 1. Normal pelvic ultrasound. 2. Normal endometrium. 3. On a few images there is minimal focal shadowing in the region of the endometrium. On a recent CT there was an IUD in position along the endometrial canal. If that IUD has not been removed it is not identified by ultrasound. If the IUD has not been removed we should repeat this examination at no ad ditional charge to better evaluate for satisfactory positioned IUD. I suspect the IUD is present but not adequately imaged for position.
== END 2023-12-21 13:39 | disposition home or self-care (01) ==
LOC: RAD 13:38
PROVIDERS: PCP Nurse Practitioner Family; Visit Provider Nurse Practitioner Family
DX: E04.9 Nontoxic goiter, unspecified (principal); R10.2 Pelvic and perineal pain
CPT/HCPCS: 76536; 76830; 76856

== ENCOUNTER → 2024-07-25 11:13 | Outpatient (BNVA) | payer BC, MEDICAID, SELFPAY | PROVIDERS: PCP Nurse Practitioner Family; Visit Provider Nurse Practitioner Women's Health | DX: Z12.4 Encounter for screening for malignant neoplasm of cervix (principal) | CPT/HCPCS: 87624 ==

== ENCOUNTER 2024-08-07 13:50 | Outpatient (CLI) | payer BC, MEDICAID, SELFPAY ==
--- NOTE | 2024-08-07 14:00 | MM_ITS ---
WS: [id number] SCREENING DIGITAL BREAST TOMOSYNTHESIS MAMMOGRAM WITH CAD HISTORY: Z12.39 - Encounter for other screening for malignant neop... COMPARISON: 06/07/2016, 05/22/2016 Bilateral CC and MLO with tomosynthesis and synthetic mammography submitted. Computer aided detection analyzed. Breast composition: There are scattered areas of fibroglandular density. Ovoid well-circumscribed mas s in the anterior LEFT breast of increased density measures 4.3 x 6.8 x 4.8 cm. There is an additiona l slightly lobulated asymmetry middle depth lateral LEFT breast seen best on the cc view measuring 1. 3 x 1.1 cm. This may be just posterior to the larger hyperdense mass on the lateral view. No suspicio us calcifications. MM/[place] [id number] IMPRESSION: BI-RADS: 0 - Incomplete: Need additional imaging evaluation. FOLLOW UP: Need Additional Imaging LEFT breast: Spot compression view on the mammogram only to be performed in the smaller mass in the lateral LEFT breast. Spot compression views (CC and MLO). True ML. Ultrasound to follow if abnormality persists. Ultrasound will be perfo rmed of the larger mass in the anterior breast and possibly the smaller mass in the lateral breast.
== END 2024-08-07 13:51 | disposition home or self-care (01) ==
PROVIDERS: PCP Nurse Practitioner Family; Visit Provider Nurse Practitioner Women's Health
DX: Z12.31 Encounter for screening mammogram for malignant neoplasm of breast (principal); R92.323 Mammographic fibroglandular density, bilateral breasts; N63.20 Unspecified lump in the left breast, unspecified quadrant
CPT/HCPCS: 77067

== ENCOUNTER → 2024-08-20 12:57 | Outpatient (BNVA) | payer BC, MEDICAID, SELFPAY | PROVIDERS: PCP Nurse Practitioner Family; Visit Provider Obstetrics & Gynecology | DX: R87.619 Unspecified abnormal cytological findings in specimens from cervix uteri (principal) | CPT/HCPCS: 81025; 88305 ==

== ENCOUNTER 2024-09-09 14:00 | Outpatient (CLI) | payer BC, MEDICAID, SELFPAY ==
--- NOTE | 2024-09-09 14:00 | MM_ITS ---
WS: [id number] ADDITIONAL VIEWS LEFT MAMMOGRAM with tomosynthesis. LEFT BREAST ULTRASOUND HISTORY: R92.8 - Other abnormal and inconclusive findings on diagn... COMPARISON: 05/22/2016, 08/07/2024 LEFT MAMMOGRAM: Spot compression views and true ML with tomosynthesis and sympathetic mammography. Well-circumscribed mass retroareolar measures 6.7 x 5.0 x 5.6 cm. This is a mass of increased density . The additional asymmetry in the LEFT breast near 3:00 at a middle depth becomes less apparent but d oes not completely resolved. Ultrasound will be obtained. LEFT BREAST ULTRASOUND 2-D and color Doppler imaging submitted. Solid, mixed predominantly hypoechoic mass retroareolar region of the LEFT breast. This is a well-cir cumscribed mass with minimal peripheral increased vascularity. Mass measures 5.3 x 7.0 x 2.3 cm. MM/MM diag LT tomosynthesis [id number] IMPRESSION: BI-RADS: 4- Suspicious Finding - Biopsy Should be Considered FOLLOW UP: Biopsy Recommended Ultrasound-guided biopsy recommended of the solid mass LEFT retroareolar region . Notified KARINA Oconnell at 09/09/2024 3:14 PM. Notified via message [employer] o [facility].
--- NOTE | 2024-09-09 14:15 | US_ITS ---
WS: [id number] ADDITIONAL VIEWS LEFT MAMMOGRAM with tomosynthesis. LEFT BREAST ULTRASOUND HISTORY: R92.8 - Other abnormal and inconclusive findings on diagn... COMPARISON: 05/22/2016, 08/07/2024 LEFT MAMMOGRAM: Spot compression views and true ML with tomosynthesis and sympathetic mammography. Well-circumscribed mass retroareolar measures 6.7 x 5.0 x 5.6 cm. This is a mass of increased density . The additional asymmetry in the LEFT breast near 3:00 at a middle depth becomes less apparent but d oes not completely resolved. Ultrasound will be obtained. LEFT BREAST ULTRASOUND 2-D and color Doppler imaging submitted. Solid, mixed predominantly hypoechoic mass retroareolar region of the LEFT breast. This is a well-cir cumscribed mass with minimal peripheral increased vascularity. Mass measures 5.3 x 7.0 x 2.3 cm. US/US breast LT limited* [id number] IMPRESSION: BI-RADS: 4- Suspicious Finding - Biopsy Should be Considered FOLLOW UP: Biopsy Recommended Ultrasound-guided biopsy recommended of the solid mass LEFT retroareolar region . Notified KARINA Oconnell at 09/09/2024 3:14 PM. Notified via [employer] o [facility].
== END 2024-09-09 14:05 | disposition home or self-care (01) ==
PROVIDERS: PCP Nurse Practitioner Family; Visit Provider Nurse Practitioner Women's Health
DX: N63.23 Unspecified lump in the left breast, lower outer quadrant (principal)
CPT/HCPCS: 76642; 77061; G0279

== ENCOUNTER 2024-10-01 10:46 | Outpatient (CLI) | payer BC, MEDICAID, SELFPAY | END 2024-10-01 10:47 | disposition home or self-care (01) | LOC: RAD 10:47 | PROVIDERS: PCP Nurse Practitioner Family; Visit Provider Nurse Practitioner Women's Health | DX: N60.22 Fibroadenosis of left breast (principal); N60.92 Unspecified benign mammary dysplasia of left breast | CPT/HCPCS: 19083; 88305 ==

== ENCOUNTER 2024-10-12 05:00 | Emergency (ER) | payer BC, MEDICAID, SELFPAY ==
[2024-10-12 05:32] VITALS: BP 166/79; PULSE 65; RESP 20; TEMP 36.6; O2SAT 100; BMI 40.1
[2024-10-12 05:52] LABS: Basophils % 0.2 %; Eosinophils # 0.1 10^3/uL (0.0-0.8); Eosinophils % 0.7 %; Hematocrit 37.6 % (36-47); Lymphocytes % 22.4 %; Mean Corpuscular Hemoglobin 31.1 pg (27-33); Mean Corpuscular Volume 91.5 fl (85-98); Mean Platelet Volume 10.5 fL (7.4-10.4); Monocytes # 0.5 10^3/uL (0.2-0.9); Monocytes % 5.6 %; Neutrophils % 70.7 %; Nucleated Red Blood Cells % 0 %; Platelet Count 321 10^3/cmm (157-399); Red Blood Count 4.11 10^6/uL (3.85-5.65); Red Cell Distribution Width 12.5 % (12.1-15.1); White Blood Count 8.92 10^3/uL (3.29-11.43)
--- NOTE | 2024-10-12 05:52 | W.ED.FEMALGU ---
HPI - Female Genitourinary General: Chief complaint: Urogenital-Female Stated complaint: Back Pain\Possible Kidney Stone Time Seen by Provider: 10/12/24 05:46 History of Present Illness: 39-year-old female presents to complaining of left lower back pain she localizes the pain just over the posterior portion of the iliac crest. She denies any hematuria she has had kidney stones in the past within the last 6 months she had a gastric bypass surgery done. She been very nauseous but unable to vomit because of her gastric bypass. She denies any fever sweats chills no dysuria urgency or frequency she does have a sensation of some pelvic pressure. No diarrhea. No hematochezia or melena. Associated symptoms: Deny abdominal pain Related Data Home Medications Medication Instructions Recorded Confirmed calcium acetate 667 mg tablet 667 mg PO BID 07/25/24 10/12/24 [id number] 45 mg-folic 1 cap PO DAILY 07/25/24 10/12/24 acid 800 mcg-vit K 120 mcg capsule (Bariatric Multivitamins) potassium chloride 20 mEq 20 meq PO BID PRN low potassium 07/25/24 10/12/24 tablet,extended release Previous Rx's Medication Instructions Recorded levothyroxine 300 mcg tablet 300 mcg PO DAILY #30 tabs 03/01/22 hydrocodone 5 mg-acetaminophen 325 1 tab PO Q6H PRN pain #25 tabs 10/12/24 mg tablet promethazine 25 mg tablet 25 mg PO Q6H PRN nausea and 10/12/24 vomiting #20 tabs tamsulosin 0.4 mg capsule 0.4 mg PO DAILY #14 caps 10/12/24 Allergies Allergy/AdvReac Type Severity Reaction Status Date / Time Penicillins Allergy ALGY-Rash--Can Verified 09/11/24 11:06 take Keflex Review of Systems Const: Denies: fever(s) or chills Card: Denies: chest pain Resp: Denies: dyspnea GI: Denies: abdominal pain : Reports: flank pain; Denies: dysuria, urinary frequency, urinary urgency or hematuria Musc: Denies: neck pain or back pain Skin/Breast: Denies: rash PFSH ED PFSH: Medical History No pertinent past medical history Denies diabetes, asthma, hypertension, seizures, DVT/PE PCP: DANNIE Banks 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 She reports she was followed by her manufacturing engineering intern as a child but has not had any follow-up other than with MFM in her 20s during her resolved at 8 y/o. Hypothyroid (~2015) Diagnosed in 2010. Was last seen by endocrinology in about 2015 and has been under management by her primary care provider. She ran out of medication at the beginning of the and refill was provided by Melyssa Marino. Surgical History History of bariatric surgery (~04/2024) [facility]-- gastric bypass; Dr Patel Status post delivery 01/10/2022---primary delivery performed for distress at 32 weeks after pubs procedure in [facility] S/P cystoscopy with ureteral stent placement (~01/04/18) Cystoscopy, left retrograde ureteropyelogram, left ureteroscopy with stone extraction, left ureteral stent placement performed by Dr. Allen due to obstructing left distal ureteral stone with refractory renal colic, intrinsic narrowing of the left ureteral distal to the location of the stone, likely the reason the stone has not progressed History of tonsillectomy and adenoidectomy (~1990) Hx of foot surgery (~1996) right--- trauma Hx laparoscopic cholecystectomy (~2018) Family History Father Diabetes Heart disease Hypercholesteremia Hypertension Denies family history of Colon cancer Ovarian cancer Breast cancer Uterine cancer Thyroid disease Stroke Social History Smoking and tobacco/nicotine status: former use of tobacco/nicotine Physical Exam Const: COMMON NORMALS: no acute distress GENERAL APPEARANCE: cooperative and comfortable ORIENTATION/CONSCIOUSNESS: Yes awake, Yes oriented to person, Yes oriented to place and Yes oriented to time HENMT: COMMON NORMALS: normocephalic, atraumatic and hearing grossly normal bilaterally HEAD & SCALP: normocephalic and atraumatic Resp: COMMON NORMALS: normal respiratory effort, No retractions, No use of accessory muscles and clear to auscultation bilaterally AUSCULTATION: clear to auscultation bilaterally Cardio: COMMON NORMALS: regular rate, regular rhythm and No murmurs present (Cardio) RATE: regular rate RHYTHM: regular rhythm GI: COMMON NORMALS: Soft to palpation and No hepatosplenomegaly present AUSCULTATION: Yes normoactive bowel sounds PALPATION: Yes Soft to palpation, No Tenderness to palpation present (GI), No Guarding due to palpation present (GI) and Yes No hepatosplenomegaly present : COMMON NORMALS: Yes no CVA tenderness BLADDER/KIDNEY EXAM: Yes no CVA tenderness Back/Pelvis: COMMON NORMALS: no CVA tenderness Extremity: COMMON NORMALS: normal to inspection, capillary refill normal, no clubbing, cyanosis or edema, no calf tenderness and no pedal edema Neuro: SENSORIUM/ORIENTATION: Yes oriented to person, Yes oriented to place and Yes oriented to time Skin: COMMON NORMALS: no rashes or lesions noted GENERAL SKIN EXAM: no rashes or lesions noted Course Vital Signs: Vital signs: Vital Signs Temperature 98 F 10/12/24 05:32 Pulse Rate 65 10/12/24 05:32 Respiratory Rate 20 H 10/12/24 05:32 Blood Pressure 166/79 10/12/24 05:32 Pulse Oximetry 100 10/12/24 05:32 MDM - Female Medical Decision Making Left distal ureteral stone 3 to 4 mm. It is at the UVJ. Will discharge home pain is well-controlled discharge home with hydrocodone tamsulosin 1 promethazine strain urine. Will refer to urology through case management. Return if pain is not controlled Medical Records I reviewed the patient's medical records. Lab Data I reviewed the patient's lab results. 10/12/24 05:42 10/12/24 05:42 Radiology Impressions Abdomen/Pelvis CT 10/12/24 05:58 IMPRESSION: 1. 3-4 mm distal left ureteral calculus, see additional details above. 2. Moderate left hydronephrosis and hydroureter. 3. Possible mild urinary bladder wall thickening, see above. 4. No diverticulitis. 5. No free air or significant bowel distention. 6. Left lower lung nodule, see above discussion. 7. Other findings discussed above. REFERENCES: Ashwin Cordova, et al. Guidelines for Management of Incidental Pulmonary Nodules Detected on CT Images: From the Fleischner Society 2017. Radiology. 2017;284(1):228-243. Laboratory Results WBC 8.92 10^3/uL (3.29-11.43) 10/12/24 05:42 RBC 4.11 10^6/uL (3.85-5.65) 10/12/24 05:42 Hgb 12.80 g/dL (11.27-16.99) 10/12/24 05:42 Hct 37.6 % (36-47) 10/12/24 05:42 MCV 91.5 fl (85-98) 10/12/24 05:42 MCH 31.1 pg (27-33) 10/12/24 05:42 MCHC 34.0 g/dL (30-55) 10/12/24 05:42 RDW 12.5 % (12.1-15.1) 10/12/24 05:42 Plt Count 321 10^3/cmm (157-399) 10/12/24 05:42 MPV 10.5 fL (7.4-10.4) H 10/12/24 05:42 Neut % (Auto) 70.7 % 10/12/24 05:42 Lymph % (Auto) 22.4 % 10/12/24 05:42 [place] % (Auto) 5.6 % 10/12/24 05:42 Eos % (Auto) 0.7 % 10/12/24 05:42 Baso % (Auto) 0.2 % 10/12/24 05:42 Neut # (Auto) 6.30 10^3/uL (1.8-7.7) 10/12/24 05:42 Lymph # (Auto) 2.0 10^3/uL (0.8-4.8) 10/12/24 05:42 [place] # (Auto) 0.5 10^3/uL (0.2-0.9) 10/12/24 05:42 Eos # (Auto) 0.1 10^3/uL (0.0-0.8) 10/12/24 05:42 Baso # (Auto) 0.0 10^3/uL (0.0-0.1) 10/12/24 05:42 Nucleated RBC % (auto) 0 % 10/12/24 05:42 Nucleated RBCs # 0.0 /100WBC 10/12/24 05:42 Sodium 141 mmol/L (136-145) 10/12/24 05:42 Potassium 2.9 mmol/L (3.5-5.1) L 10/12/24 05:42 Chloride 102 mmol/L (98-107) 10/12/24 05:42 Carbon Dioxide 26 mmol/L (22-29) 10/12/24 05:42 Anion Gap 15.9 (5-19) 10/12/24 05:42 BUN 8 mg/dL (6-20) 10/12/24 05:42 Creatinine 0.8 mg/dL (0.5-0.9) 10/12/24 05:42 GFR Calculation 79.4 mL/min (90-130) L 10/12/24 05:42 Glucose 107 mg/dL (65-115) 10/12/24 05:42 Calculated Osmolality 291 mOsm/kg (285-295) 10/12/24 05:42 Calcium 9.9 mg/dL (8.5-10.5) 10/12/24 05:42 C-Reactive Protein 21.8 mg/L (0.0-4.9) H 10/12/24 05:42 Lipase 13 U/L (13-60) 10/12/24 05:42 HCG, Qual Negative (Negative) 10/12/24 05:42 Urine Color Yellow (Yellow) 10/12/24 05:42 Urine Appearance Cloudy (CLEAR) A 10/12/24 05:42 Urine pH 6.0 (5-7) 10/12/24 05:42 Ur Specific [place] 1.024 (1.005-1.030) 10/12/24 05:42 Urine Protein Trace (Negative) A 10/12/24 05:42 Urine Glucose (UA) Negative (Normal) 10/12/24 05:42 Urine Ketones 1+ (Negative) H 10/12/24 05:42 Urine Blood 2+ (Negative) A 10/12/24 05:42 Urine Nitrate Negative (Negative) 10/12/24 05:42 Urine Bilirubin Negative (Negative) 10/12/24 05:42 Urine Urobilinogen 1.0 mg/dL (Negative) 10/12/24 05:42 Ur Leukocyte Esterase Negative (Negative) 10/12/24 05:42 Urine RBC >100 /hpf (0-2) H 10/12/24 05:42 Urine WBC 0-4 /hpf (0-5) H 10/12/24 05:42 Ur Squamous Epith Cells 0-4 /hpf (0-5) H 10/12/24 05:42 Calcium Oxalate Crystal 10-15 /hpf H 10/12/24 05:42 Amorphous Sediment Not Reportable 10/12/24 05:42 Urine Bacteria Trace /hpf (NONE) 10/12/24 05:42 Urine Mucus 2+ /hpf 10/12/24 05:42 All radiology interpretation(s) finalized by discharge Discharge Plan Discharge Patient Disposition: Home Clinical Impression: Left nephrolithiasis Condition: Stable Prescriptions: New hydrocodone-acetaminophen 5-325 mg tablet 1 tab PO Q6H PRN (Reason: pain) Qty: 25 0RF promethazine 25 mg tablet 25 mg PO Q6H PRN (Reason: nausea and vomiting) Qty: 20 0RF tamsulosin 0.4 mg capsule 0.4 mg PO DAILY Qty: 14 0RF No Action potassium chloride 20 mEq tablet extended release 20 meq PO BID PRN (Reason: low potassium) Bariatric Multivitamins 45 mg iron- 800 mcg-120 mcg capsule 1 cap PO DAILY calcium acetate 667 mg tablet 667 mg PO BID levothyroxine 300 mcg tablet 300 mcg PO DAILY Qty: 30 0RF Discharge Orders: Discharge ED (Routine); Ordered 10/12/24 Ordered By: Miguel Mccain Referrals: Baxter,KARINA Cooper [Primary Care Provider] - Discharge Diet: Usual diet Discharge Activity: Resume usual activity Patient Instructions: Kidney Stones (ED), How to Strain Your Urine (ED), Opioid Safety, Pain Management Activity Restrictions/Additional Instructions: Thank you for choosing [facility] for your healthcare needs today. It is very important that you follow up as instructed or that you return to the Emergency Department should you have concerns or if your condition changes or worsens in any way. social work manager will make arrangements for you to follow-up with urology as an outpatient. Strain your urine to collect stone if possible. Coding Level of Care Code ED Hole Puncher Strap for Yovani Lazar
[2024-10-12 05:53] LABS: Bilirubin Urine Negative (Negative); Blood Urine 2+ (Negative); Glucose Urine UA Negative (Normal); Ketones Urine 1+ (Negative); Leukocyte Esterase Urine Negative (Negative); Nitrate Urine Negative (Negative); Protein Urine Trace (Negative); Specific Gravity, Urine 1.024 (1.005-1.030); Urine Appearance Cloudy (CLEAR); Urine Color Yellow (Yellow)
--- NOTE | 2024-10-12 05:58 | CTR_ITS ---
PROCEDURE INFORMATION: Exam: CT Abdomen And Pelvis Without Contrast Exam date and time: 10/12/2024 6:44 AM Age: 39 years old Clinical indication: Abdominal pain; Prior surgery; Surgery date: 6+ months; Surgery type: Gastric bypass. Gb. Csection. Iud. Patient HX: C/O left flank pain TECHNIQUE: Imaging protocol: Computed tomography of the abdomen and pelvis without contrast. Radiation optimization: All CT scans at this facility use at least one of these dose optimization techniques: automated exposure control; mA and/or kV adjustment per patient size (includes targeted exams where dose is matched to clinical indication); or iterative reconstruction. COMPARISON: CT abdomen pelvis w con* [id number] 08/30/2023 12:40 AM RADIATION DOSE METRICS: Total DLP (mGy-cm): 1076.84 FINDINGS: Lungs: On axial image # 9, series 4, there is a 6 mm noncalcified nodule in the medial left lower lobe. A small granuloma is likely, other etiologies/neoplasm not entirely excluded. No significant change since 08/30/2023. Lack of growth in slightly greater than 1 year would also argue for a benign process. Lack of growth for a total of 2 years would be useful to ensure a benign process. This was not present on an older available comparison exam of 01/04/2018. Eventual comparison with any other available prior exams might be helpful. For patients at low risk (minimal or absent history of smoking and of other known risk factors), recommend CT Chest at 3-6 months, then consider CT Chest at 18-24 months. For patients at high risk (history of smoking or of other known risk factors), recommend CT Chest at 3-6 months, then CT Chest at 18-24 months. (Reference: Ashwin). The lung bases otherwise appear essentially clear. No pleural fluid. Liver: There is prominent fatty infiltration of the liver. Gallbladder and biliary ducts: Prior cholecystectomy, no significant biliary tree dilation. Pancreas: Unremarkable. Spleen: Unremarkable. Adrenal glands: Unremarkable. Kidneys and ureters: Moderate left hydronephrosis and hydroureter. Mild left perinephric and periureteric stranding. There is a 3-4 mm distal left ureteral calculus, about 2 cm from the UVJ. No definite/visible intrarenal calculus. No right hydronephrosis or visible right ureteral calculus. Stomach and bowel: Evidence for prior gastric bypass surgery, new in the interval. No significant bowel distention. There are no CT findings to suggest diverticulitis. Appendix: The appendix is probably identified, and there are no suspicious findings for appendicitis. No pericecal inflammatory changes are seen. Intraperitoneal space: No free intraperitoneal air, or ascites. Vasculature: No evidence for abdominal aortic aneurysm. Lymph nodes: No retroperitoneal adenopathy. Urinary bladder: No visible calculus in the urinary bladder. Possibly some mild diffuse urinary bladder wall thickening. However evaluation is somewhat limited, as the bladder is almost empty. While nonspecific, this could indicate evidence for cystitis. Please correlate clinically. Reproductive: An IUD is present within the uterus. Bones/joints: Apparent hemangioma again seen in the L1 vertebral body, not significantly changed. Soft tissues: Very small umbilical hernia, containing only fat. CT/CT kidney stone [id number] IMPRESSION: 1. 3-4 mm distal left ureteral calculus, see additional details above. 2. Moderate left hydronephrosis and hydroureter. 3. Possible mild urinary bladder wall thickening, see above. 4. No diverticulitis. 5. No free air or significant bowel distention. 6. Left lower lung nodule, see above discussion. 7. Other findings discussed above. REFERENCES: Ashwin H, et al. Guidelines for Management of Incidental Pulmonary Nodules Detected on CT Images: From the Fleischner Society 2017. Radiology. 2017;284(1):228-243.
[2024-10-12 06:12] LABS: Blood Urea Nitrogen 8 mg/dL (6-20); C Reactive Protein 21.8 mg/L (0.0-4.9); Calcium 9.9 mg/dL (8.5-10.5); Carbon Dioxide 26 mmol/L (22-29); Chloride 102 mmol/L (98-107); Glomerular Filtration Rate 79.4 mL/min (90-130); Glucose 107 mg/dL (65-115); Lipase 13 U/L (13-60); Osmolality Calculated 291 mOsm/kg (285-295); Sodium 141 mmol/L (136-145)
[2024-10-12 06:14] LABS: Anion Gap 15.9 (5-19); Potassium 2.9 mmol/L (3.5-5.1)
[2024-10-12 06:18] LABS: Add Urine Microscopic? YES; Bacteria Urine TRACE /hpf; RBC Urine >100 /hpf (0-2); Squamous Epithelial Cell Urine 0-4 /hpf (0-5); WBC Urine 0-4 /hpf (0-5)
[2024-10-12 06:19] LABS: Add Urine Culture? Yes; Mucus Urine 2+ /hpf
[2024-10-12] MEDS: potassium chloride oral liq 20 mEq/15 mL UDC 60 MEQ PO (06:24)
[2024-10-12] MEDS: ondansetron 2 mg/ML SDV 2 mL 4 MG IVP (06:34)
[2024-10-12] MEDS: ketorolac 30 mg/mL INJ IVP (06:35)
[2024-10-12] MEDS: morphine 4 mg/mL SDV 1 mL IVP (06:36)
[2024-10-12 06:40] LABS: HCG, Serum Qual Negative (Negative)
[2024-10-12 08:11] VITALS: RESP 16; O2SAT 94
[2024-10-12] MEDS: HYDROmorphone 1 mg/mL INJ 1 mL 0.5 MG IVP (08:11)
[2024-10-12 08:15] VITALS: BP 168/97; PULSE 55; O2SAT 96
--- NOTE | 2024-10-15 09:17 | DCPLANNER ---
[facility]
== END 2024-10-12 08:15 | disposition home or self-care (01) ==
PROVIDERS: Emergency Medicine; Emergency Provider Family Medicine; PCP Nurse Practitioner Family
DX: N20.0 Calculus of kidney (principal); Z87.891 Personal history of nicotine dependence
CPT/HCPCS: 74176; 80048; 81001; 83690; 84703; 85025; 86140; 87086; 96374; 96375; 99285; J1171; J1885; J2270; J2405